=== PATIENT | female | born 1965 | race Caucasian/White ===

== ENCOUNTER 2019-05-02 | Emergency (ER) | payer BC, OTHER | END 2019-05-02 14:20 | disposition home or self-care (01) | DX: R20.2 Paresthesia of skin (principal); M25.561 Pain in right knee; Z90.13 Acquired absence of bilateral breasts and nipples; Z85.3 Personal history of malignant neoplasm of breast ==

== ENCOUNTER 2019-05-10 11:03 | Emergency (ER) | payer OTHER ==
[2019-05-10] MEDS ORDERED: SUCRALFATE 1 GM/10 ML 1 GM UD PO ONE (11:19)
[2019-05-10] MEDS ORDERED: ONDANSETRON ODT 8 MG TAB SL ONE (11:19)
[2019-05-10] MEDS ORDERED: SODIUM CHLORIDE 0.9% 1000ML 1,000 ML IVS ONE (11:19)
[2019-05-10] MEDS ORDERED: levoFLOXacin 500MG IV 500 MG in PREMIX BAG 1 BAG IVPB ONE (11:53)
[2019-05-10] MEDS ORDERED: levoFLOXacin 500MG IV 100 ML IVPB ONE (11:55)
[2019-05-10] MEDS ORDERED: traMADol HCL 50 MG TAB PO ONE (12:26)
--- NOTE | 2019-05-10 12:59 | ED.PDOC ---
History of Present Illness - General Chief Complaint: Problem Stated Complaint: nausea,unable to eat,recent UTI Time Seen by Provider: 05/10/19 11:11 Source: patient Exam Limitations: no limitations - History of Present Illness Initial Comments: The patient is a 54-year-old female presents emergency room secondary to feeling poorly and having GI symptoms over the last 12 to 18 hours. The patient is being treated for a urinary tract infection. She has been on antibiotics for about 5 days but was just changed from Keflex to Bactrim yesterday. She feels like she is a little bit dehydrated. She has had nausea but no real vomiting. She has had a distant history of frequent UTIs but none recently. No fevers. No flank pain. Urine is being cultured with her primary care doctor. Timing/Duration: 24 hours Severity: mild Improving Factors: nothing Worsening Factors: nothing Associated Symptoms: malaise, nausea/vomiting Allergies/Adverse Reactions: Allergies NO KNOWN ALLERGY Allergy (Verified 05/02/19 11:51) Home Medications: Ambulatory Orders Zolpidem Tartrate [Ambien] 5 mg PO BEDTIME 05/02/19 Ciprofloxacin [Cipro] 500 mg PO BID #10 tab 05/10/19 Famotidine [Pepcid Tab] 20 mg PO BID #60 tab 05/10/19 Ondansetron Odt [Zofran ODT] 4 mg PO Q8HR PRN #5 tab 05/10/19 Sulfa/Trimeth 800/160 (Ds) Tab [Bactrim DS] 1 tablet PO BID 05/10/19 Review of Systems - Review of Systems Constitutional: States: malaise EENTM: States: no symptoms reported Respiratory: States: no symptoms reported Cardiology: States: no symptoms reported Gastrointestinal/Abdominal: States: nausea Genitourinary: States: no symptoms reported, dysuria, frequency Musculoskeletal: States: no symptoms reported Skin: States: no symptoms reported Neurological: States: headache Endocrine: States: no symptoms reported All other Systems: No Change from Baseline Past Medical History (General) - Patient Medical History Hx Seizures: No Hx Stroke: No Hx Asthma: No Hx Cardiac Disorders: No Hx Congestive Heart Failure: No Hx Diabetes: No Hx Cancer: Yes - Breast Surgical History: Hysterectomy - Vaccination History Hx Influenza Vaccination: No - Social History Hx Tobacco Use: No Family Medical History - Family History Mother Family History: No Known Physical Exam - Physical Exam General Appearance: Agitated, Alert, Comfortable, No apparent distress Eye Exam: bilateral normal Ears, Nose, Throat: hearing grossly normal, normal ENT inspection Neck: full range of motion, supple Respiratory: lungs clear, normal breath sounds, no respiratory distress, no accessory muscle use Cardiovascular/Chest: normal peripheral pulses, regular rate, rhythm, no edema Peripheral Pulses: radial,right: 2+, radial,left: 2+ Gastrointestinal/Abdominal: non tender - Mild suprapubic discomfort, soft Rectal Exam: deferred Back Exam: no CVA tenderness, no vertebral tenderness Extremity: normal range of motion, non-tender, normal inspection, no pedal edema, normal capillary refill Neurologic: protection specialist II-XII nml as tested, alert, normal mood/affect, oriented x 3 Skin Exam: normal color Comments: Vital Signs - 24 hr 05/10/19 05/10/19 11:14 12:09 Temperature 99.4 F Pulse Rate [ 96 H 87 Left Brachial] Respiratory 16 16 Rate Blood Pressure 132/67 134/96 [Left Arm] O2 Sat by Pulse 94 L 95 Oximetry Progress - Progress Progress: 05/10/19 12:57 The patient is a 54-year-old female presented emergency room secondary to the development of some nausea after starting antibiotics for urinary tract infection. Her primary care doctor is culturing her urinary tract infection. Blood work here does look reassuring. She has received a liter of IV fluids. She is going to be written for Zofran for as needed use to control any nausea or vomiting. I do also recommend that she hand picker some [id number] Pepcid and take twice daily while she is taking the antibiotic and also hand picker some liquid Maalox to take as needed. I will go ahead and write her a prescription for the ciprofloxacin to switch over to from the Bactrim if she continues to have GI upset with the Bactrim. This is of course a frequent side effect with this medication. ER warnings are given. Follow back up with primary care doctor for culture results. No evidence of sepsis at this time. Maintain a bland diet. [email or web address] sauceda [id number] - Results/Orders Results/Orders: Laboratory Results - last 24 hr 05/10/19 05/10/19 05/10/19 11:33 11:33 11:33 WBC 11.0 H RBC 4.19 L Hgb 13.5 Hct 39.0 MCV 93.2 MCH 32.2 H MCHC 34.6 RDW 12.5 Plt Count 243 MPV 7.1 L Absolute Neuts (auto) 8.50 H Absolute Lymphs (auto) 1.30 Absolute Monos (auto) 1.20 H Absolute Eos (auto) 0.00 Absolute Basos (auto) 0.10 Neutrophils % 76.6 Lymphocytes % 11.8 L Monocytes % 10.7 H Eosinophils % 0.2 L Basophils % 0.7 Sodium 131 L Potassium 3.8 Chloride 98 L Carbon Dioxide 23 Anion Gap 13.8 BUN < 5 L Creatinine 0.71 BUN/Creatinine Ratio 7.0 L Random Glucose 119 H Serum Osmolality 261.1 L Lactic Acid 0.8 Calcium 9.0 Total Bilirubin 0.9 AST 18 ALT 16 Alkaline Phosphatase 50 Serum Total Protein 6.6 Albumin 3.8 Globulin 2.8 Albumin/Globulin Ratio 1.4 Amylase 27 L Lipase 22 Departure - Departure Clinical Impression: Cystitis Gastritis Qualifiers: Gastritis type: unspecified gastritis Chronicity: acute Gastritis bleeding: without bleeding Qualified Code(s): K29.00 - Acute gastritis without bleeding Disposition: Discharge to Home or Self Care Condition: Fair Departure Forms: ED Discharge - Pt. Copy, Patient Portal Self Enrollment Instructions: DI for Urinary Tract Infection (UTI) Diet: bland diet Activity: increase activity as tolerated Referrals: Tone Mehta III, MD [Primary Care Provider] - 1-2 Weeks Prescriptions: Ondansetron Odt [Zofran ODT] 4 mg PO Q8HR PRN #5 tab PRN Reason: Nausea--Moderate Ciprofloxacin [Cipro] 500 mg PO BID #10 tab Famotidine [Pepcid Tab] 20 mg PO BID #60 tab Home Medications: Ambulatory Orders Zolpidem Tartrate [Ambien] 5 mg PO BEDTIME 05/02/19 Ciprofloxacin [Cipro] 500 mg PO BID #10 tab 05/10/19 Famotidine [Pepcid Tab] 20 mg PO BID #60 tab 05/10/19 Ondansetron Odt [Zofran ODT] 4 mg PO Q8HR PRN #5 tab 05/10/19 Sulfa/Trimeth 800/160 (Ds) Tab [Bactrim DS] 1 tablet PO BID 05/10/19 Additional Instructions: The patient is a 54-year-old female presented emergency room secondary to the development of some nausea after starting antibiotics for urinary tract infection. Her primary care doctor is culturing her urinary tract infection. Blood work here does look reassuring. She has received a liter of IV fluids. She is going to be written for Zofran for as needed use to control any nausea or vomiting. I do also recommend that she hand picker some [id number] Pepcid and take twice daily while she is taking the antibiotic and also hand picker some liquid Maalox to take as needed. I will go ahead and write her a prescription for the ciprofloxacin to switch over to from the Bactrim if she continues to have GI upset with the Bactrim. This is of course a frequent side effect with this medication. ER warnings are given. Follow back up with primary care doctor for culture results. No evidence of sepsis at this time. Maintain a bland diet.
[2019-05-10 13:36] VITALS: BP 139/88; TEMP 99; O2SAT 99
== END 2019-05-10 13:36 | disposition home or self-care (01) ==
LOC: ER 11:03
DX: K29.00 Acute gastritis without bleeding (principal); N30.90 Cystitis, unspecified without hematuria; Z87.440 Personal history of urinary (tract) infections; Z85.3 Personal history of malignant neoplasm of breast
CPT/HCPCS: 36415; 80053; 82150; 83605; 83690; 85025; 87502; J1956; J7030